=== PATIENT | female | born 1985 | race African-American/Black ===

== ENCOUNTER 2023-12-14 13:18 | Emergency (ER) | payer OTHER ==
[2023-12-14 13:40] VITALS: BP 115/87; PULSE 99; RESP 18; TEMP 99.7; BMI 25.8
[2023-12-14] MEDS ORDERED: ACETAMINOPHEN 325 MG TABLET (FP) ONE (14:14)
[2023-12-14] MEDS: SODIUM CHLORIDE 0.9% 500 ML INFUS.BAG IV ONE (14:23)
[2023-12-14] MEDS: ACETAMINOPHEN 325 MG TABLET (FP) PO ONE (14:23)
[2023-12-14 14:36] LABS: HEMOGLOBIN 12.5 G/dL (10.7-15.3); MCH 27.2 pg (25.7-33.7); MCHC 33.9 g/dl (32.0-36.0); MEAN CELL VOLUME 80.3 fl (80-96); MEAN PLT VOLUME 8.6 fl (7.5-11.1); RBC 4.61 10^6/uL (3.60-5.2); RDW 15.3 % (11.6-15.6); WHITE BLOOD COUNT 8.3 10^3/uL (4.0-10.8)
[2023-12-14 14:39] LABS: ALBUMIN 4.2 g/dl (3.4-5.0); BILIRUBIN,TOTAL 0.4 mg/dl (0.2-1); CREATININE 0.8 mg/dl (0.6-1.3); MAGNESIUM 1.8 mg/dL (1.8-2.4); POTASSIUM 3.8 mmol/L (3.5-5.1); TOT PROT 7.3 g/dl (6.4-8.2)
[2023-12-14 14:40] LABS: HCG,QUALITATIVE URINE Negative; PLATELET ESTIMATE ADEQUATE
== END 2023-12-14 16:15 | disposition home or self-care (01) ==
LOC: FER 13:18
DX: R10.31 Right lower quadrant pain (principal); R50.9 Fever, unspecified; D25.9 Leiomyoma of uterus, unspecified; K59.00 Constipation, unspecified; Z20.822 Contact with and (suspected) exposure to COVID-19
CPT/HCPCS: 0241U-QW; 36415; 74177-TC; 80053; 81003; 83690; 83735; 84703; 85027; 87086; 99285-25; Q9967